=== PATIENT | male | born 1975 | race Caucasian/White ===

== ENCOUNTER 2020-01-04 11:28 | Emergency (ER) | payer BC, OTHER ==
[2020-01-04 12:04] VITALS: BP 127/86
[2020-01-04] MEDS ORDERED: NORMAL SALINE 1000 ML 1,000 ML IV ONE ×2 (12:34→14:39)
--- NOTE | 2020-01-04 12:35 | ER Document Report ---
ED Medical Screen (RME) - General Chief Complaint: High Blood Sugar Stated Complaint: BLOOD SUGAR ISSUES Time Seen by Provider: 01/04/20 12:31 Primary Care Provider: RABIA RICK MD [Primary Care Provider] - Follow up as needed Mode of Arrival: Ambulatory Information source: Patient Notes: Patient presents complaining of 3-week history of increased thirst and urination. Patient complains of blurred vision and generally feeling not well. Patient states he was at work and checked his blood sugar and it read high on the glucometer. Patient has no history of diabetes. I have greeted and performed a rapid initial assessment of this patient. A comprehensive ED assessment and evaluation of the patient, analysis of test results and completion of the medical decision making process will be conducted by additional ED providers. - Related Data Allergies/Adverse Reactions: No Known Allergies Allergy (Verified 11/17/11 21:59) Home Medications: zoloft, ambien, ritalin Past Medical History - Social History Chew tobacco use (# tins/day): No Frequency of alcohol use: Occasional Drug Abuse: None Pulmonary Medical History: Denies: Hx Tuberculosis Neurological Medical History: Denies: Hx Seizures Renal/ Medical History: Reports: Hx Kidney Stones GI Medical History: Reports: Hx Gastroesophageal Reflux Disease - hx of Psychiatric Medical History: Reports: Hx Post Traumatic Stress Disorder Past Surgical History: Denies: Hx Pacemaker - Immunizations Hx Diphtheria, Pertussis, Tetanus Vaccination: Yes Physical Exam - Vital signs Vitals: Temp Pulse Resp BP Pulse Ox 99.0 F 96 16 127/86 H 96 01/04/20 12:01/04/20 12:02 01/04/20 12:01/04/20 12:02 01/04/20 12:02 - General General appearance: Appears well, Alert In distress: None - Respiratory Respiratory status: No respiratory distress Breath sounds: Normal - Cardiovascular Rhythm: Regular Heart sounds: S1 appreciated, S2 appreciated Course - Vital Signs Vital signs: Temp Pulse Resp BP Pulse Ox 99 F 96 16 127/86 H 96 01/04/20 12:31 01/04/20 12:02 01/04/20 12:02 01/04/20 12:02 01/04/20 12:02 Doctor's Discharge - Discharge Referrals: RABIA RICK MD [Primary Care Provider] - Follow up as needed
[2020-01-04 13:00] LABS: VENOUS BLOOD BASE EXCESS -3.1 mmol/L; VENOUS BLOOD HCO3 21.3 mmol/L (20-32); VENOUS BLOOD PCO2 36.9 mmHg (35-63); VENOUS BLOOD PH 7.38 (7.30-7.42)
[2020-01-04 13:09] LABS: APPEARANCE,URINE CLEAR; BILIRUBIN,URINE NEGATIVE (NEGATIVE); COLOR,URINE STRAW; GLUCOSE, URINE >=500 mg/dL (NEGATIVE); KETONES,URINE 20 mg/dL (NEGATIVE); LEUKOCYTE ESTERASE,URINE NEGATIVE (NEGATIVE); NITRITE,URINE NEGATIVE (NEGATIVE); PROTEIN,URINE NEGATIVE (NEGATIVE); UROBILINOGEN,URINE NEGATIVE mg/dL (<2.0)
[2020-01-04 13:13] LABS: ALBUMIN 4.7 g/dL (3.5-5.0); ALKALINE PHOSPHATASE 90 U/L (38-126); ANION GAP 14 (5-19); ASPARTATE AMINO TRANSFERASE 32 U/L (17-59); BILIRUBIN,DIRECT 0.6 mg/dL (0.0-0.4); BLOOD UREA NITROGEN 12 mg/dL (7-20); CALCIUM 9.6 mg/dL (8.4-10.2); CARBON DIOXIDE 20 mmol/L (22-30); CHLORIDE 100 mmol/L (98-107); POTASSIUM 4.4 mmol/L (3.6-5.0); TOTAL PROTEIN 7.9 g/dL (6.3-8.2)
[2020-01-04 13:14] LABS: ADD MANUAL MICROSCOPIC YES; RBC,URINE NONE SEEN /HPF; WBC,URINE NONE SEEN /HPF
[2020-01-04 13:15] LABS: ABSOLUTE BASOPHILS # (AUTO) 0.1 10^3/uL (0.0-0.2); ABSOLUTE EOSINOPHILS # (AUTO) 0.3 10^3/uL (0.0-0.6); ABSOLUTE LYMPHOCYTES (AUTO) 2.4 10^3/uL (0.5-4.7); ABSOLUTE MONOCYTES (AUTO) 0.6 10^3/uL (0.1-1.4); ABSOLUTE NEUT (AUTO) 5.6 10^3/uL (1.7-8.2); BASOPHILS % (AUTO) 0.8 % (0-2); EOSINOPHILS % (AUTO) 3.1 % (0-6); HEMATOCRIT 48.6 % (37.9-51.0); LYMPHOCYTES % (AUTO) 26.4 % (13-45); MEAN CORPUSCULAR VOLUME 89 fl (80-97); MONOCYTES % (AUTO) 6.7 % (3-13); PLATELET COUNT 302 10^3/uL (150-450); RED BLOOD COUNT 5.44 10^6/uL (4.35-5.55); RED CELL DISTRIBUTION WIDTH 12.7 % (11.5-14.0); TOTAL CELLS COUNTED % (AUTO) 100 %
[2020-01-04 13:16] LABS: GLUCOSE 449 mg/dL (75-110)
[2020-01-04 13:17] LABS: HEMOGLOBIN 16.3 g/dL (13.5-17.0); MEAN CORPUSCULAR HEMOGLOBIN 29.9 pg (27.0-33.4); MEAN CORPUSCULAR HGB CONC 33.5 g/dL (32.0-36.0)
--- NOTE | 2020-01-04 14:47 | ER Document Report ---
ED General - General Chief Complaint: High Blood Sugar Stated Complaint: BLOOD SUGAR ISSUES Time Seen by Provider: 01/04/20 12:31 Primary Care Provider: RABIA RICK MD [NO LOCAL MD] - Follow up as needed Mode of Arrival: Ambulatory - [facility] Notes: Chief complaint: Blood sugar elevation History of present illness: 44-year-old male with no known prior history of diabetes mellitus but a strong family history of type 2 diabetes has been experiencing blurred vision and general malaise for about 2 weeks. This is been associated with polydipsia and polyuria. Patient does not have a primary care doctor and says he has not seen a physician in years. He takes no regular medications and has no known allergies. He spoke to 1 of the nurses at his workplace who did a fingerstick glucose suggesting his blood sugar was greater than 500. He came directly here. He denies any vomiting, cough, skin lesions, fever, chills or dysuria - Related Data Allergies/Adverse Reactions: No Known Allergies Allergy (Verified 11/17/11 21:59) Home Medications: zoloft, ambien, ritalin Past Medical History - General Information source: Patient - Social History Smoking Status: Current Every Day Smoker Chew tobacco use (# tins/day): No Frequency of alcohol use: Occasional Drug Abuse: None Lives with: Family Family History: DM Pulmonary Medical History: Denies: Hx Tuberculosis Neurological Medical History: Denies: Hx Seizures Renal/ Medical History: Reports: Hx Kidney Stones GI Medical History: Reports: Hx Gastroesophageal Reflux Disease - hx of Psychiatric Medical History: Reports: Hx Post Traumatic Stress Disorder Past Surgical History: Reports: Hx Cholecystectomy. Denies: Hx Pacemaker - Immunizations Hx Diphtheria, Pertussis, Tetanus Vaccination: Yes Review of Systems - Review of Systems Notes: Constitutional: As per HPI. HENT: Negative for sore throat. Eyes: As per HPI. Cardiovascular: Negative for chest pain. Respiratory: Negative for shortness of breath. Gastrointestinal: Negative for abdominal pain, vomiting or diarrhea. Genitourinary: Negative for dysuria. Musculoskeletal: Negative for back pain. Skin: Negative for rash. Neurological: Negative for headaches, weakness or numbness. 10 point ROS negative except as marked above and in HPI. Physical Exam - Vital signs Vitals: Temp Pulse Resp BP Pulse Ox 99.0 F 96 16 127/86 H 96 01/04/20 12:02 01/04/20 12:02 01/04/20 12:02 01/04/20 12:02 01/04/20 12:02 - Notes Notes: GENERAL: Well-developed well-nourished appearing in no acute distress. SKIN: Good turgor no rashes. HEAD: Normocephalic atraumatic. EYES: PERRLA. EOMI. Conjunctivae and sclerae clear. EARS: CANALS AND TMS CLEAR. NOSE: CLEAR. MOUTH: Moist mucosa. Good dentition. No stridor or edema. No drooling. NECK: Supple. No masses or thyromegaly. No adenopathy. Carotids 2+ without br uits. No JVD. BACK: Symmetrical without tenderness. CHEST: Respirations unlabored. Breath sounds clear and symmetrical. HEART: Regular rhythm. No murmur gallop or rub. ABDOMEN: Soft nontender without masses, organomegaly or rebound. Bowel sounds normally active. No bruits. GENITALIA: Deferred. EXTREMITIES: No edema. No calf tenderness. Cap refill less than 1.5 seconds. Dorsalis pedis and posterior tibial pulses 3+ and symmetrical. NEUROLOGICAL: GCS 15. Alert and oriented x3. Normal gait. Fluent speech. Cranial nerves II through XII intact. Sensorimotor and cerebellar normal. Normal tone. PSYCHIATRIC: Appropriate affect. Course - Re-evaluation Re-evalutation: 01/04/20 16:12 Blood sugar was reduced to 302 by Accu-Chek after he received 2 L normal saline here. Patient is not in DKA. He appears to be a new onset type II diabetic. His hemoglobin A1c is 8.8. We spoke at some length about diabetes mellitus type 2. Patient is well educated and articulate I think he will do well with outpatient follow-up. He is going to see a primary care doctor this week. He is going to obtain a glucometer and test strips and start monitoring his blood sugars by fingerstick before meals and at bedtime. He is all ready familiar with the device having help family members with monitoring in past years. We talked about general dietary and exercise recommendations. I advised him he will need to see a primary care physician and also seek referral to a sql report analyst. I am going to initiate outpatient therapy with oral metformin and we talked about this at some length as well. 01/04/20 16:14 Findings, clinical impression and plan of treatment have been discussed with patient/family. Understanding of current findings and recommendations has been acknowledged by them and there is agreement regarding disposition and follow-up. - Vital Signs Vital signs: Temp Pulse Resp BP Pulse Ox 99 F 96 16 127/86 H 96 01/04/20 12:31 01/04/20 12:02 01/04/20 12:02 01/04/20 12:02 01/04/20 12:02 - Laboratory Result Diagrams: 01/04/20 12:44 01/04/20 12:44 Laboratory results interpreted by me: 01/04/20 01/04/20 01/04/20 12:41 12:44 12:44 Sodium 133.7 L Carbon Dioxide 20 L Glucose 449 H* POC Glucose 461 H* Hemoglobin A1c % 8.8 H Direct Bilirubin 0.6 H Urine Glucose (UA) Urine Ketones 01/04/20 01/04/20 12:44 15:30 Sodium Carbon Dioxide Glucose POC Glucose 308 H Hemoglobin A1c % Direct Bilirubin Urine Glucose (UA) >=500 H Urine Ketones 20 H Discharge - Discharge Clinical Impression: New onset type 2 diabetes mellitus Condition: Stable Disposition: HOME, SELF-CARE Additional Instructions: Diabetes You have an abnormally high blood sugar, and findings consistent with new onset of diabetes mellitus type 2. You will be scheduled for further evaluation. It's very important that you follow through. Uncontrolled high blood sugar leads to early heart disease, strokes, nerve damage, eye damage, and kidney damage. All diabetics should follow a diet designed to control the blood sugar. Overweight diabetics should exercise regularly and lose weight. You are receiving a prescription for an oral medication to take for your diabetes. Home testing of blood sugars or urine sugar is required. You need to see a physician as soon as possible to initiate long-term care for your diabetes. You may return here as needed for new or worsening symptoms as needed. You will be provided a work note for the next 3 days. Prescriptions: Metformin HCl [Glucophage 500 mg Tablet] 500 mg PO ASDIR PRN #60 tablet PRN Reason: Forms: Return to Work Referrals: RABIA RICK MD [NO LOCAL MD] - Follow up as needed
== END 2020-01-04 16:52 | disposition home or self-care (01) ==
LOC: ER 11:28
DX: E11.65 Type 2 diabetes mellitus with hyperglycemia (principal); H53.8 Other visual disturbances; R53.81 Other malaise; R63.1 Polydipsia; R35.8 Other polyuria; Z79.899 Other long term (current) drug therapy; F17.200 Nicotine dependence, unspecified, uncomplicated
CPT/HCPCS: 99284; 96360; 96361; 36415; 82962; 85025; 80053; 81001; 83036; 82803; J7030